=== PATIENT | female | born 1945 | race Two or more races ===

== ENCOUNTER 2021-05-03 09:33 | Outpatient (CLI) | payer OTHER | END 2021-05-03 09:34 | disposition home or self-care (01) | LOC: TOM 09:33 | PROVIDERS: ATTEND Colon & Rectal Surgery | DX: Z93.3 Colostomy status (principal) ==

== ENCOUNTER 2021-05-09 05:50 | Day surgery (SDC) | payer OTHER | END 2021-05-09 11:25 | disposition home or self-care (01) | LOC: AMB-ENDOS 05:50 | PROVIDERS: ATTEND Colon & Rectal Surgery | DX: K52.89 Other specified noninfective gastroenteritis and colitis (principal); K64.8 Other hemorrhoids; Z87.19 Personal history of other diseases of the digestive system ==

== ENCOUNTER 2021-07-20 09:00 | Inpatient (IN) | payer OTHER ==
[~2021-07-20] VITALS: Ht 154.9 cm; Wt 51.7 kg
[2021-07-26] MEDS ORDERED: EMERGEN-C IMM1000 MG (08:27)
== END 2021-08-02 15:11 | disposition home or self-care (01) | DRG 330 ==
LOC: SURH 07-25 09:00 → O/R 07-25 11:19 → SURG 07-25 21:24 → SURH 07-27 14:51
PROVIDERS: ADMIT Colon & Rectal Surgery; ATTEND Colon & Rectal Surgery
PROC: 0DBP0ZZ Excision of Rectum, Open Approach (ICD-10-PCS; 2021-07-25)
PROC: 0DTN0ZZ Resection of Sigmoid Colon, Open Approach (ICD-10-PCS; 2021-07-25)
PROC: 0WQF0ZZ Repair Abdominal Wall, Open Approach (ICD-10-PCS; 2021-07-25)
PROC: 0DBL0ZZ Excision of Transverse Colon, Open Approach (ICD-10-PCS; 2021-07-25)
PROC: 0D1B0Z4 Bypass Ileum to Cutaneous, Open Approach (ICD-10-PCS; principal; 2021-07-25 10:30)
DX: K94.09 Other complications of colostomy (principal); D62 Acute posthemorrhagic anemia; D12.6 Benign neoplasm of colon, unspecified; K43.2 Incisional hernia without obstruction or gangrene; R14.0 Abdominal distension (gaseous); R00.0 Tachycardia, unspecified; Z20.822 Contact with and (suspected) exposure to COVID-19; E86.0 Dehydration

== ENCOUNTER → 2021-11-30 | Outpatient (CLI) | payer OTHER ==
[~2021-11-30] MED LIST: EMERGEN-C IMM1000 MG
== END | disposition home or self-care (01) ==
LOC: RX STUDY 08:44
PROVIDERS: ATTEND Colon & Rectal Surgery
DX: Z93.3 Colostomy status (principal)

== ENCOUNTER 2022-01-07 08:30 | Outpatient (CLI) | payer OTHER | END 2022-01-07 08:38 | disposition home or self-care (01) | LOC: LAB 08:30 | PROVIDERS: ATTEND Colon & Rectal Surgery | DX: K94.09 Other complications of colostomy (principal) ==